=== PATIENT | female | born 1990 | race Caucasian/White ===

== ENCOUNTER 2020-09-05 08:24 | Outpatient (CLI) | payer MEDICAID | END 2020-09-05 23:59 | disposition home or self-care (01) | LOC: RAD 08:24 | DX: R41.0 Disorientation, unspecified (principal) | CPT/HCPCS: 95819 ==

== ENCOUNTER 2023-12-27 18:43 | Emergency (ER) | payer MEDICAID ==
[~2023-12-27] VITALS: Ht 167.6 cm; Wt 103.0 kg
[2023-12-27 18:45] VITALS: BP 131/96; PULSE 81; RESP 14; TEMP 97.2; O2SAT 100
[2023-12-27] MEDS ORDERED: OXYC-145 PO (19:36)
== END 2023-12-27 19:45 | disposition home or self-care (01) ==
LOC: ER 18:43
DX: K08.89 Other specified disorders of teeth and supporting structures (principal); Z88.0 Allergy status to penicillin; Z79.899 Other long term (current) drug therapy
CPT/HCPCS: 99282; 99283

== ENCOUNTER 2024-02-05 12:40 | Outpatient (CLI) | payer MEDICAID ==
[~2024-02-05 12:40] MED LIST: OXYC-145 PO
== END 2024-02-05 23:59 | disposition home or self-care (01) ==
LOC: RAD 12:40
PROVIDERS: ATTEND Nurse Practitioner Family
DX: M50.30 Other cervical disc degeneration, unspecified cervical region (principal)
CPT/HCPCS: 72040

== ENCOUNTER 2024-03-01 16:14 | Emergency (ER) | payer MEDICAID ==
[~2024-03-01] VITALS: Ht 167.6 cm; Wt 105.2 kg
[2024-03-01 16:43] VITALS: BP 131/92; PULSE 74; RESP 17; TEMP 98.9; O2SAT 96
[2024-03-01] MEDS ORDERED: METR-159 PO (17:23)
[2024-03-01] MEDS ORDERED: SULF1TAB49 PO (17:23)
[2024-03-01] MEDS: sulfamethoxazole/trimethoprim DS (800/160mg) tablet PO ONE (18:23)
[2024-03-01] MEDS: metroNIDAZOLE 500mg tablet PO ONE (18:23)
[2024-03-01] MEDS: TETanus/Pertussis (Acell)/Diphther VAC/PF (Tdap-Adult) 0.5ml syringe IMVAC ONE (18:24)
== END 2024-03-01 18:39 | disposition home or self-care (01) ==
LOC: ER 16:15
DX: S81.832A Puncture wound without foreign body, left lower leg, initial encounter (principal); Z88.0 Allergy status to penicillin; Z79.899 Other long term (current) drug therapy; W55.01XA Bitten by cat, initial encounter; Y93.89 Activity, other specified; Y92.89 Other specified places as the place of occurrence of the external cause; Y99.8 Other external cause status
CPT/HCPCS: 90471; 90715; 99283